=== PATIENT | male | born 1975 | race Caucasian/White ===

== ENCOUNTER → 2016-09-22 | Outpatient (CLI) | payer OTHER ==
--- NOTE | 2016-09-22 12:01 | KCIC ---
PROCEDURE Testicular sonogram. HISTORY Hematospermia. TECHNIQUE Grayscale and color Doppler sonographic imaging of the testes with spectral waveform analysis was performed. COMPARISON None. FINDINGS The right testis measures 4.3 x 3.0 x 2.3 cm. The left testis measures 4.6 x 3.4 x 2.4 cm. There is no focal testicular parenchymal lesion. There is normal blood flow within both testes. There are trace hydroceles. The epididymides are unremarkable. There is no varicocele. IMPRESSION 1. Trace bilateral hydroceles. 2. Otherwise, unremarkable testicular sonogram. Electronically signed by: Nicole Osorio (Sep 22, 2016 12:00:04)
== END | disposition home or self-care (01) ==
LOC: KCIC US 10:52
PROVIDERS: ATTEND Nurse Practitioner Occupational Health
DX: R36.1 Hematospermia (principal); N43.3 Hydrocele, unspecified
CPT/HCPCS: 76870